=== PATIENT | male | born 1950 | race Caucasian/White ===

== ENCOUNTER 2022-03-20 12:27 | Emergency (ER) | payer OTHER, MEDICARE, MEDICAID ==
[~2022-03-20] VITALS: Ht 180.3 cm; Wt 97.7 kg
[~2022-03-20 12:27] MED LIST: ASPI-1265 PO; CYCL-394 PO; LISI20TA28 PO; MULT-785 PO; NORCO10T PO; ZOC40T PO
[2022-03-20 12:40] VITALS: BP 138/84
[2022-03-20] MEDS ORDERED: ALBU6.7H14 INH (14:37)
[2022-03-20] MEDS ORDERED: PRED20TA PO (14:37)
[2022-03-20] MEDS ORDERED: GUAI120015 PO (14:37)
== END 2022-03-20 14:53 | disposition home or self-care (01) ==
LOC: ER 12:28
DX: J06.9 Acute upper respiratory infection, unspecified (principal); Z20.822 Contact with and (suspected) exposure to COVID-19; R05.9 Cough, unspecified; R09.89 Other specified symptoms and signs involving the circulatory and respiratory systems; F32.A Depression, unspecified; F17.200 Nicotine dependence, unspecified, uncomplicated; Z90.89 Acquired absence of other organs; Z87.01 Personal history of pneumonia (recurrent); Z98.890 Other specified postprocedural states; Z72.89 Other problems related to lifestyle; Z88.8 Allergy status to other drugs, medicaments and biological substances; Z88.0 Allergy status to penicillin; Z79.82 Long term (current) use of aspirin; Z79.899 Other long term (current) drug therapy
CPT/HCPCS: 71045; 87635; 99284; C9803

== ENCOUNTER 2025-03-15 11:48 | Emergency (ER) | payer OTHER, MEDICARE, MEDICAID ==
[~2025-03-15] VITALS: Ht 177.8 cm; Wt 99.1 kg
[~2025-03-15 11:48] MED LIST changes: +ALBU6.7H14 INH; +GUAI120015 PO
[2025-03-15 11:59] VITALS: TEMP 98.5
--- NOTE | 2025-03-15 12:52 | RADIOLOGY REPORT ---
CHEST RADIOGRAPH Indication: pna symptoms Technique: Single frontal view of the chest was obtained Comparison: CHEST,SINGLE VIEW on DOS: 03/20/22 FINDINGS: Lines and Tubes: None Lungs: No focal consolidation. Pleura: No effusion. No pneumothorax. Cardiomediastinal contours: Unremarkable Bones: No acute osseous abnormality. IMPRESSION: 1. No acute cardiopulmonary disease.
--- NOTE | 2025-03-15 13:51 | Physician Documentation ---
History of Present Illness ~ Chief Complaint: See Chief Complaint Stated Complaint: COLD SYMPTOMS Time Seen by MD: 13:43 Primary Medical Doctor: guy Source: patient, family Exam Limitations: no limitations HPI Chief Complaint: Cough, bilateral chest pain Caveat: None Independent Historians: History of Present Illness: Patient is a 74-year-old man who comes in complaining of cough and cold symptoms for two weeks. Patient has had some increasing cough and developed pain over his right lateral lower ribs. Pain is only when he coughs. Patient is concerned that he may have recurrent pneumonia. No fever. No shortness a breath. No substernal chest pain. No abdominal pain. No nausea vomiting diarrhea. Review of systems: All systems were reviewed and are negative except for what is indicated in the history of present illness. Past Medical History: History of pneumonia, HTN, HLD Past Surgical History: Noncontributory Social History: Distant history of tobacco use, no alcohol use, no drug use, Medications: Reviewed as documented Nursing Notes Allergies: Reviewed as documented in Nursing Notes Medication Reconciliation Allergies: Coded Allergies: iodine (Verified Allergy, Intermediate, rash, 03/15/25) Penicillins (Verified Allergy, Unknown, 03/15/25) Scheduled Albuterol Sulfate (Proventil Hfa), 2 PUFFS INH Q6H Aspirin (Aspirin), 81 MG PO DAILY, (Reported) Cyclobenzaprine HCl (Cyclobenzaprine HCl), 10 MG PO TID, (Reported) Guaifenesin (Mucinex), 1 TAB PO Q12H Hydrocodone Bit/Acetaminophen 10/325 MG* (Ambrose 10/325 MG*), 1 TAB PO BID, (Reported) Lisinopril (Lisinopril), 20 MG PO DAILY, (Reported) Multivitamins* (Multivitamin*), 1 EACH PO DAILY, (Reported) Simvastatin* (Zocor*), 40 MG PO HS, (Reported) Past Medical History Past Medical History: Parkinson's Disease, Pneumonia, Depression Past Surgical History: appendectomy, other Alcohol Use: Occasionally Drug Use: none Lives with: Family Lives In: Home Occupation: retired Review of Systems All Other Systems at this time: Reviewed and Negative ROS Patient denies any other acute symptoms other than above. All other systems are negative Physical Exam Vital Signs: RN Vital Signs have been reviewed: Yes, Temperature: 98.5, Source: Temporal, Heart Rate: 77, Respiratory Rate: 15, BP: 140/73, Pulse Oximetry: 95, Weight: 99.090 Oxygen Flow Rate: 0 Pulse Oximetry Reflects: adequate oxygenation Physical Exam General Appearance: No distress HEENT: Normal OP, moist oral mucosa, PERRL, EOMI Neck: supple, normal ROM, trachea midline Pulmonary: No respiratory distress, CTA, BS equal Cardiac: RRR, no murmur, rub or gallop, GI: nondistended, soft, nontender, normal bowel sounds, no guarding, no rebound Extremities: normal ROM, no swelling, non-tender Skin: intact, dry, warm, no rashes Neuro: AAOx3, speech is clear, no focal motor weakness Psych: normal affect, good eye contact, no apparent hallucination, normal speech Progress Results/Orders Results/Orders Vital Signs 03/15/25 03/15/25 03/15/25 03/15/25 11:59 13:09 14:06 14:08 Temp 98.5 Pulse 97 77 69 Resp 14 15 15 B/P (MAP) 130/73 140/73 (95) 135/79 Pulse Ox 97 95 95 O2 Flow Rate 0 Medical Decision Making Findings Differential diagnosis includes but is not limited to: PNEUMONIA, PLEURAL EFFUSION, MUSCULOSKELETAL PAIN, VIRAL URI Chest x-ray, single view, indication: Cough Independent interpretation: Lungs are clear, normal mediastinum, normal cardiac silhouette. No acute cardiopulmonary process Emergency department course/medical decision-making: Patient is a 74-year-old man who presents with cough and bilateral lower rib pain. There was no evidence of recurrent pneumonia, pleural effusion or congestive heart failure. Patient may be discharged home. Test results and treatment plan reviewed with him. He can take Motrin or Tylenol for pain. Patient is instructed to follow up with his primary care doctor. Departure Time of Disposition: 13:49 Disposition: 01 HOME / SELF CARE / HOMELESS Impression: Primary Impression: Cough Qualified Codes: R05.1 - Acute cough Additional Impression: Musculoskeletal pain Condition: Stable Discharge Instructions: Cough, Adult, [id number], Musculoskeletal Pain Additional Instructions: FOLLOW UP WITH YOUR PRIMARY CARE DOCTOR IF YOUR SYMPTOMS CONTINUE. RETURN TO THE EMERGENCY DEPARTMENT IF YOU DEVELOP A FEVER OR WORSENING SYMPTOMS. Education Educated: Patient, Family Educated regarding: diagnosis, treatment, need for follow up Signature Scribe Signature: NO SCRIBE Attestation: NO VIJAYIBYOSELYN ROSSI MD Mar 15, 2025 13:51
[2025-03-15 14:06] VITALS: BP 135/79; PULSE 69; RESP 15; O2SAT 95
== END 2025-03-15 14:08 | disposition home or self-care (01) ==
LOC: ER 11:48
DX: R05.9 Cough, unspecified (principal); I10 Essential (primary) hypertension; E78.5 Hyperlipidemia, unspecified; F32.A Depression, unspecified; Z88.0 Allergy status to penicillin; Z90.49 Acquired absence of other specified parts of digestive tract; Z88.8 Allergy status to other drugs, medicaments and biological substances; Z79.899 Other long term (current) drug therapy; Z79.82 Long term (current) use of aspirin; Z72.89 Other problems related to lifestyle
CPT/HCPCS: 71045; 99284